=== PATIENT | male | born 1940 | race Caucasian/White ===

== ENCOUNTER 2019-06-11 08:55 | Outpatient (CLI) | payer MEDICARE, BC ==
--- NOTE | 2019-06-11 11:45 | CT ---
CT NECK WITH CONTRAST: INDICATIONS: Basal cell carcinoma from the lower lip. Exam performed for staging. COMPARISON: None. TECHNIQUE: Axial tomograms obtained with IV enhancement with multiplanar reconstructions. FINDINGS: The parotid glands appear symmetric and unremarkable. The submandibular glands are unremarkable. There is a low density nodule in the left lobe of the thyroid, measuring approximately 1.2 cm. Thyroi d and lower neck are suboptimally evaluated due to significant spray artifact, apparently from a pros thetic device in the left shoulder, which is seen on topogram. Significant spray artifact from dental appliances obscure the oropharynx and maxilla. Nasopharynx appears unremarkable. The tongue is obscured. The base of the tongue, including the genioglossus and geniohyoid complex jose ear unremarkable. The Waldeyer's ring region appears symmetric with mildly prominent palatine tonsils for age. The hypopharynx and larynx appear unremarkable. The taxicab starter space, parapharyngeal space and retropharyngeal space are unremarkable. The carotid space is unremarkable. There are atherosclerotic calcifications in both carotid bulbs, mo re prominent on the left. No evidence of significant carotid stenosis identified. Review of lymph nodes show no significant level I or submandibular nodes. No level II adenopathy. Level III, IV and V lymph nodes are all unremarkable. Tiny subcentimeter leve l V nodes. There are nonspecific level II lymph nodes along the vascular chain bilaterally. No adenop athy apparent. The osseous structures show degenerative spondylitic changes involving the cervical spine. These abbott ges produce mild cord compression at the C4-C5, C5-C6 and C6-C7 levels. There is foraminal stenosis a t these levels due to facet and uncinate hypertrophy. The paranasal sinuses and mastoids are well aerated and clear. IMPRESSION: 1. No evidence of cervical adenopathy. 2. 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 3. Question nodule in left lobe of thyroid. This area is poorly evaluated due to spray artifact. 4. Mildly prominent palatine tonsils for age. Suggest clinical evaluation. POS: YULY
== END 2019-06-11 08:56 | disposition home or self-care (01) ==
LOC: SCSCT 08:55
PROVIDERS: ATTEND Radiology Radiation Oncology
DX: C00.1 Malignant neoplasm of external lower lip (principal); M47.812 Spondylosis without myelopathy or radiculopathy, cervical region; G95.20 Unspecified cord compression
CPT/HCPCS: 70491; 82565

== ENCOUNTER 2021-11-20 09:51 | Outpatient (CLI) | payer MEDICARE, BC ==
[2021-11-20 11:26] LABS: ALT (SGPT) 17 U/L (8-55); AST (SGOT) 20 U/L (5-34); Albumin 4.1 g/dL (3.4-4.8); Alkaline Phosphatase 85 U/L (40-110); Anion Gap 16 mmol/L (10-20); BUN (Urea Nitrogen) 12 mg/dL (8.4-25.7); Bilirubin, Total 0.5 mg/dL (0.2-1.2); Calc. Creatinine Clearance 0 mL/min (70-130); Carbon Dioxide 25 mmol/L (23-31); Chloride 105 mmol/L (98-107); Globulin 2.2 g/dL (2.4-3.5); Glucose 98 mg/dL (83-110); Potassium 4.6 mmol/L (3.5-5.1); Protein, Total 6.3 g/dL (5.8-8.1); Sodium 141 mmol/L (136-145)
[2021-11-20 11:30] LABS: #Eosinphils 0.2 10x3/uL (0.0-0.5); #Monocytes 0.7 10x3/uL (0.0-1.1); #Neutrophils 2.3 10x3/uL (1.5-8.4); %Basophils 0.7 % (0.0-2.0); %Eosinophils 2.8 % (0.0-6.0); %Lymphocytes 40.4 % (18.0-47.0); %Monocytes 12.7 % (0.0-10.0); %Neutrophils 43.2 % (40.0-75.0); Hemoglobin 13.1 g/dL (13.5-17.5); Mean Corpuscular HGB CONC 32.3 g/dL (32.0-36.0); Mean Corpuscular Hemoglobin 30.7 pg (27.0-33.0); Mean Corpuscular Volume 94.8 fl (81.2-95.1); Mean Platelet Volume 9.5 fl (7.4-10.4); Platelet Count 203 10x3/uL (150-450); RBC Distribution Width 16.9 % (11.5-14.5); Red Blood Cell (RBC) Count 4.27 10x6/uL (4.32-5.72); White Blood Cell (WBC) Count 5.4 10x3/uL (3.5-10.5)
[2021-11-20 18:42] LABS: SARS-CoV-2 PCR by NAA Not Detected (NotDetected)
== END 2021-11-20 09:52 | disposition home or self-care (01) ==
LOC: LABBT 09:51
PROVIDERS: ATTEND Surgery
DX: Z01.818 Encounter for other preprocedural examination (principal); K40.90 Unilateral inguinal hernia, without obstruction or gangrene, not specified as recurrent; Z20.822 Contact with and (suspected) exposure to COVID-19
CPT/HCPCS: 80053; 85025; 93005; U0003; U0005; 93010

== ENCOUNTER 2021-11-23 06:56 | Day surgery (SDC) | payer MEDICARE, BC ==
[2021-11-21 14:15] VITALS: BMI 21.9
[2021-11-23] MEDS ORDERED: Bupivacaine PF 0.5% 30 ML VIAL ONE (08:58)
[2021-11-23] MEDS ORDERED: Lidocaine 1% w/Epinephrine 1:100K 20 ML VIAL ONE (08:58)
[2021-11-23] MEDS ORDERED: fentaNYL Citrate/PF 100 MCG/2 ML SYRINGE ONE (09:40)
[2021-11-23] MEDS ORDERED: CEFAZOLIN 2 GM VIAL ONE (09:44)
[2021-11-23] MEDS ORDERED: Sodium Chloride 0.9% 100 ML ONE (09:44)
[2021-11-23] MEDS ORDERED: PHENYLEPHRINE-NS 100 MCG/ML 10 ML SYRINGE ONE (09:50)
[2021-11-23] MEDS ORDERED: ePHEDrine 50 MG/ML VIAL ONE (09:50)
[2021-11-23] MEDS ORDERED: Ketorolac Tromethamine 30 MG/ML VIAL ONE (09:50)
[2021-11-23] MEDS ORDERED: Glycopyrrolate 0.2 MG/ML 5 ML SYRINGE ONE (09:50)
[2021-11-23] MEDS ORDERED: Dexamethasone 20 MG/5 ML VIAL ONE (09:50)
[2021-11-23] MEDS ORDERED: Lidocaine 1% PF 5 ML VIAL ONE (09:50)
[2021-11-23] MEDS ORDERED: Ondansetron PF 4 MG/2 ML Vial ONE (09:50)
[2021-11-23] MEDS ORDERED: Esmolol 100 MG/10 ML VIAL ONE (09:50)
[2021-11-23] MEDS ORDERED: PROPOFOL 200 MG/20 ML VIAL ONE (09:50)
== END 2021-11-23 12:40 | disposition home or self-care (01) ==
LOC: SDC 06:56
PROVIDERS: ATTEND Surgery
PROC: 0YU50JZ Supplement Right Inguinal Region with Synthetic Substitute, Open Approach (ICD-10-PCS; principal; 2021-11-23)
DX: K40.90 Unilateral inguinal hernia, without obstruction or gangrene, not specified as recurrent (principal); Z85.46 Personal history of malignant neoplasm of prostate; Z79.82 Long term (current) use of aspirin
CPT/HCPCS: 49505; C1781; J1100; J1885; J2405; J2704; J3490; S0020

== ENCOUNTER 2022-05-30 08:57 | Outpatient (CLI) | payer MEDICARE, BC | END 2022-05-30 08:58 | disposition home or self-care (01) | LOC: SCSRAD 08:57 | PROVIDERS: ATTEND Family Medicine | DX: M47.22 Other spondylosis with radiculopathy, cervical region (principal) | CPT/HCPCS: 72052 ==